=== PATIENT | male | born 1975 ===

== ENCOUNTER 2021-08-30 21:52 | Emergency (ER) | payer SELFPAY ==
[2021-08-30] MEDS ORDERED: NA CHLORIDE 0.9% 1,000 ML ONE (23:05)
[2021-08-30] MEDS ORDERED: ONDANSETRON 4 MG/2 ML VIAL ONE (23:05)
[2021-08-30 23:21] LABS: Absolute Lymphocytes (CBC) 2.5 K/uL (0.7-4.9); Hematocrit 43.8 % (39.6-49.0); Lymphocytes % 13.6 % (15.3-44.8); MPV 8.5 fL (7.6-11.3); RBC Red Blood Cell Count 5.19 M/uL (4.33-5.43)
[2021-08-30 23:39] LABS: Albumin 3.9 g/dL (3.4-5.0); Potassium 3.7 mmol/L (3.5-5.1); Protein, Total 6.8 g/dL (6.4-8.2)
[2021-08-31 00:46] LABS: Urine Appearance Clear (Clear); Urine Bilirubin Negative (Negative); Urine Blood Negative (Negative); Urine Color Yellow (Yellow); Urine Glucose Negative (Negative); Urine Protein Negative (Negative); Urine Specific Gravity >=1.030 (1.005-1.030)
[2021-08-31 00:47] LABS: Urine Microscopic Reflex NO UMIC
[2021-08-31] MEDS ORDERED: KETOROLAC 30 MG/ML INJ ONE (00:47)
[2021-08-31] MEDS ORDERED: NA CHLORIDE 0.9% 1,000 ML ONE (00:48)
--- NOTE | 2021-08-31 01:46 | EDPHYS ---
Physician Documentation [facility] Name: Julian Peterson Age: 45 yrs Sex: Male : 1975 Arrival Date: 08/30/2021 Time: 22:01 Bed 8 Private MD: ED Physician Harpal Cortes HPI: 08/30 22:39 This 45 yrs old Male presents to ER via EMS with complaints of Heat Exposure. aj3 22:39 Onset: The symptoms/episode began/occurred acutely, 3 day(s) ago. Patient is a aj3 45-year-old male who has been walking in the heat for the past 3 days. He is homeless and has no vehicle therefore has to walk to work for miles. He is reporting nausea/vomiting, body cramps, sunburn and bilateral feet pain.. Historical: - Allergies: 22:03 No Known Allergies; ld1 - PSHx: 22:03 None; ld1 - Immunization history:: Adult Immunizations up to date, Client reports having NOT received the Covid vaccine. - Social history:: Smoking status: Patient denies any tobacco usage or history of. Patient/guardian denies using alcohol. ROS: 08/31 01:37 Constitutional: Negative for fever, chills, and weight loss, ENT: Negative for nasal aj3 discharge, congestion, sore throat and injury Neck: Negative for injury, pain, and swelling, Cardiovascular: Negative for chest pain, palpitations, and edema, Respiratory: Negative for shortness of breath, cough, wheezing, and pleuritic chest pain, : Negative for dysuria, hematuria or discolored urine Neuro: Negative for syncope, headache, weakness, numbness, tingling, and seizure, Psych: Negative for depression, anxiety, suicide ideation, homicidal ideation, and hallucinations. Abdomen/GI: Positive for nausea, vomiting. Back: Positive for pain at rest, of the Generalized. MS/extremity: Positive for pain. Skin: Positive for erythema, diffusely. Exam: 01:39 Constitutional: This is a well developed, well nourished patient who is awake, alert, aj3 and in no acute distress. 01:39 Head/Face: Normocephalic, atraumatic. Eyes: Pupils equal round and reactive to light, extra-ocular motions intact. Lids and lashes normal. Conjunctiva and sclera are non-icteric and not injected. Cornea within normal limits. Periorbital areas with no swelling, redness, or edema. 01:39 Neck: Trachea midline and no cervical lymphadenopathy. Supple, full range of motion without nuchal rigidity. 01:39 Respiratory: Lungs have equal breath sounds bilaterally, clear to auscultation and percussion. No rales, rhonchi or wheezes noted. No increased work of breathing, no retractions or nasal flaring. 01:39 Neuro: Awake and alert, GCS 15, oriented to person, place, time, and situation. Cranial nerves II-XII grossly intact. Motor strength 5/5 in all extremities. Sensory grossly intact. Cerebellar exam normal. Normal gait. Psych: Awake, alert, with orientation to person, place and time. Behavior, mood, and affect are within normal limits. 01:39 ENT: Mouth: Oral mucosa: dry. 01:39 Cardiovascular: Rate: tachycardic, Rhythm: regular, Pulses: no pulse deficits are appreciated, Heart sounds: normal, Edema: is not appreciated. 01:39 Respiratory: 01:39 Abdomen/GI: Bowel sounds: diminished, Palpation: nontender. 01:39 Musculoskeletal/extremity: Extremities: grossly normal except: erythema, swelling, bilateral feet, ROM: no acute changes, full active range of motion. 01:39 Skin: Appearance: erythema secondary to first degree sunburn. Vital Signs: 08/30 22:02 BP 105 / 68; Pulse 110; Resp 18; Temp 98.3(TE); Pulse Ox 98% on R/A; Weight 79.38 kg; ld1 Height 5 ft. 9 in. (175.26 cm); Pain 0/10; 23:10 BP 97 / 67; Pulse 92; Resp 18; Pulse Ox 100% on R/A; Pain 4/10; tw5 23:39 BP 108 / 62; Pulse 97; Resp 18 S; Pulse Ox 100% on R/A; 08/31 00:07 BP 112 / 78; Pulse 105; Resp 18; Pulse Ox 99% on R/A; tw5 01:24 BP 106 / 56; Pulse 111; Resp 18; Pulse Ox 100% on R/A; tw5 02:00 BP 110 / 75; Pulse 93; Resp 20 S; Pulse Ox 96% on R/A; as08/30 22:02 Body Mass Index 25.84 (79.38 kg, 175.26 cm) ld1 MDM: 08/30 22:37 Patient medically screened. aj3 08/31 01:39 Data reviewed: vital signs, nurses notes, lab test result(s). Counseling: I had a aj3 detailed discussion with the patient and/or guardian regarding: the historical points, exam findings, and any diagnostic results supporting the discharge/admit diagnosis, lab results, the need for outpatient follow up. Response to treatment: the patient's symptoms have mildly improved after treatment. ED course: Patient appears to be in mild rhabdomyolysis as evidenced by elevated CK and WBC. Patient has responded well to fluids and Toradol. P.o. challenge was successful without any episodes of vomiting. Will discharge patient with supportive measures and ER return precautions.. 08/30 22:43 Order name: CBC with Diff; Complete Time: 23:45 3 08/30 22:43 Order name: BMP aj3 08/30 22:43 Order name: CMP; Complete Time: 23:45 3 08/30 22:43 Order name: CK; Complete Time: 23:45 3 08/31 00:46 Order name: Urinalysis; Complete Time: 00:48 EDMS 08/31 01:14 Order name: PO challenge; Complete Time: 01:15 aj3 Administered Medications: 08/30 23:10 Drug: NS 0.9% 1000 ml Route: IV; Rate: 1 bolus; Site: left antecubital; 08/31 01:15 Follow up: Response: No adverse reaction; IV Status: Completed infusion; IV Intake: tw5 1000ml 08/30 23:10 Drug: Ondansetron 4 mg Route: IVP; Site: left antecubital; tw08/31 01:15 Follow up: Response: No adverse reaction 00:48 Drug: NS 0.9% 1000 ml Route: IV; Rate: 1 bolus; Site: left antecubital; 02:02 Follow up: Response: No adverse reaction; IV Status: Completed infusion; IV Intake: as6 1000ml 00:48 Drug: Ketorolac 15 mg Route: IVP; Site: left antecubital; 02:02 Follow up: Response: No adverse reaction as Disposition: 02:09 Co-signature as Attending Physician, Harpal Cortes MD. [email or web address] Disposition Summary: 08/31/21 01:45 Discharge Ordered Location: Home aj3 Problem: new aj3 Symptoms: have improved aj3 Condition: Stable aj3 Diagnosis - Dehydration aj3 - Sunburn of first degree aj3 Followup: aj3 - With: Private Physician - When: 1 - 2 days - Reason: Recheck today's complaints, Re-evaluation by your physician Discharge Instructions: - Discharge Summary Sheet aj3 - Dehydration, Adult aj3 - Heat Exhaustion aj3 Forms: - Medication Reconciliation Form aj3 - Thank You Letter aj3 - Antibiotic Education aj3 - Prescription Opioid Use aj3 Signatures: Dispatcher [employer] EDMS Harpal Cortes MD MD 7 Alka Burkett, RN RN ld1 Colette Leonard tw5 Wendi Gonzales, WIND UP OPERATOR WIND UP OPERATOR aj3 Sanford Falk RN as6 Corrections: (The following items were deleted from the chart) 00:50 08/30 22:43 URINALYSIS+U.LAB.BRZ ordered. EDMS EDMS
--- NOTE | 2021-08-31 01:46 | ER ---
Nurse's Notes [facility] Name: Julian Peterson Age: 45 yrs Sex: Male : 1975 Arrival Date: 08/30/2021 Time: 22:01 Bed 8 Private MD: Diagnosis: Dehydration;Sunburn of first degree Presentation: 08/30 22:02 Chief complaint: EMS states: toned out for heat exhaustion. Pt reports walking for "3 ld1 straight days.". Coronavirus screen: At this time, the client does not indicate any symptoms associated with coronavirus-19. Ebola Screen: No symptoms or risks identified at this time. Initial Sepsis Screen: Does the patient meet any 2 criteria? No. Patient's initial sepsis screen is negative. Does the patient have a suspected source of infection? No. Patient's initial sepsis screen is negative. Risk Assessment: Do you want to hurt yourself or someone else? Patient reports no desire to harm self or others. Onset of symptoms was August 30, 2021. 22:02 Method Of Arrival: EMS: [facility] ld1 22:02 Acuity: DEBRA 3 ld1 Triage Assessment: 22:03 General: Appears in no apparent distress. comfortable, Behavior is calm, cooperative, ld1 appropriate for age. Pain: Denies pain. EENT: No signs and/or symptoms were reported regarding the EENT system. Neuro: Level of Consciousness is awake, alert, obeys commands, Oriented to person, place, time, situation. Cardiovascular: Capillary refill < 3 seconds Patient's skin is warm and dry. Respiratory: Airway is patent Respiratory effort is even, unlabored. GI: Abdomen is flat, non-distended. Historical: - Allergies: 22:03 No Known Allergies; ld1 - PSHx: 22:03 None; ld1 - Immunization history:: Adult Immunizations up to date, Client reports having NOT received the Covid vaccine. - Social history:: Smoking status: Patient denies any tobacco usage or history of. Patient/guardian denies using alcohol. Screenin:10 Abuse screen: Denies threats or abuse. Denies injuries from another. Nutritional tw5 screening: No deficits noted. Tuberculosis screening: Risk factors: homeles. Fall Risk None identified. Assessment: 23:10 General: Reports "[place] I have this sunburn all tw5 over and my entire body hurts.". Pain: Pain. Neuro: No deficits noted. Cardiovascular: Heart tones S1 S2 present. Respiratory: Airway is patent Trachea midline Respiratory effort is even, unlabored. GI: Reports. : Reports inability to void. Derm: Skin is red. 08/31 00:07 Reassessment: Patient states feeling better. Patient states symptoms have improved. tw5 01:24 Reassessment: Patient states feeling better. Patient states symptoms have improved. tw5 Vital Signs: 08/30 22:02 BP 105 / 68; Pulse 110; Resp 18; Temp 98.3(TE); Pulse Ox 98% on R/A; Weight 79.38 kg; ld1 Height 5 ft. 9 in. (175.26 cm); Pain 0/10; 23:10 BP 97 / 67; Pulse 92; Resp 18; Pulse Ox 100% on R/A; Pain 4/10; tw5 23:39 BP 108 / 62; Pulse 97; Resp 18 S; Pulse Ox 100% on R/A; as6 06 00:07 BP 112 / 78; Pulse 105; Resp 18; Pulse Ox 99% on R/A; tw5 01:24 BP 106 / 56; Pulse 111; Resp 18; Pulse Ox 100% on R/A; tw5 02:00 BP 110 / 75; Pulse 93; Resp 20 S; Pulse Ox 96% on R/A; as6 08/30 22:02 Body Mass Index 25.84 (79.38 kg, 175.26 cm) ld1 ED Course: 08/30 22:01 Patient arrived in ED. bb 22:03 Triage completed. ld1 22:03 Arm band placed on left wrist. ld1 22:18 Wendi Gonzales NP is PHCP. aj3 22:18 Harpal Cortes MD is Attending Physician. aj3 22:53 Sanford Falk, RAJ is Primary Nurse. as6 23:10 Awaiting lab results. tw5 23:10 Patient has correct armband on for positive identification. Placed in gown. Bed in low tw5 position. Call light in reach. Side rails up X 1. Pulse ox on. NIBP on. Door closed. Lights dimmed. Warm blanket given. Verbal reassurance given. 23:10 CBC with Diff Sent. tw 23:10 CMP Sent. tw 23:10 CK Sent. 23:10 Initial lab(s) drawn, by me, sent to lab. Inserted saline lock: 20 gauge in left tw5 antecubital area, using aseptic technique. Blood collected. 08/31 00:20 BMP Sent. 01:24 Diet: Patient given snack. Patient given juice. 02:01 No provider procedures requiring assistance completed. IV discontinued, intact, as6 bleeding controlled, No redness/swelling at site. Pressure dressing applied. Administered Medications: 08/30 23:10 Drug: NS 0.9% 1000 ml Route: IV; Rate: 1 bolus; Site: left antecubital; tw08/31 01:15 Follow up: Response: No adverse reaction; IV Status: Completed infusion; IV Intake: tw5 1000ml 08/30 23:10 Drug: Ondansetron 4 mg Route: IVP; Site: left antecubital; 08/31 01:15 Follow up: Response: No adverse reaction 00:48 Drug: NS 0.9% 1000 ml Route: IV; Rate: 1 bolus; Site: left antecubital; tw 02:02 Follow up: Response: No adverse reaction; IV Status: Completed infusion; IV Intake: as6 1000ml 00:48 Drug: Ketorolac 15 mg Route: IVP; Site: left antecubital; 02:02 Follow up: Response: No adverse reaction as6 Medication: 08/30 23:10 VIS not applicable for this client. Intake: 08/31 01:15 IV: 1000ml; Total: 1000ml. 02:02 IV: 1000ml; Total: 2000ml. as6 Outcome: 01:45 Discharge ordered by . aj3 02:01 Discharged to home ambulatory. as6 02:01 Condition: stable 02:01 Discharge instructions given to patient, Instructed on discharge instructions, follow up and referral plans. Demonstrated understanding of instructions, follow-up care. 02:02 Patient left the ED. as6 Signatures: Marlee Toledo RN RN bb Alka Brukett RN RN [email or web address] Colette Leonard tw5 Sanford Falk RN RN as6 Wendi Gonzales, STYRENE DEHYDRATION REACTOR OPERATOR STYRENE DEHYDRATION REACTOR OPERATOR aj3 Corrections: (The following items were deleted from the chart) 00:50 00:20 URINALYSIS+U.LAB.FANNYZ drawn and sent. tw5 EDMS
[2021-08-31 02:23] VITALS: TEMP 98.3
[2021-08-31 02:34] VITALS: BP 110/75; O2SAT 96
== END 2021-08-31 02:02 | disposition home or self-care (01) ==
LOC: ER 21:52
DX: E86.0 Dehydration (principal); L55.0 Sunburn of first degree
CPT/HCPCS: 36415; 80053; 81003; 82550; 85025; 96361; 96374; 96375; 99284; J2405; J7030